=== PATIENT | male | born 1950 ===

== ENCOUNTER 2024-01-23 12:12 | Inpatient (IN) | payer MEDICARE, OTHER ==
[~2024-01-23 12:12] MED LIST: Iopamidol 300 61% 30 ML VIAL ONE; Iopamidol-370 76% 500 ML MDV (1 ML CHARGE) ONE
[2024-01-23 13:38] LABS: #Basophils 0.03 10x3/uL (0.0-0.2); #Eosinophils Less than 0.03 10x3/uL (0.0-0.7); %Basophils 0.4 % (0.0-1.0); %Monocytes 14.2 % (0.0-10.0); Hematocrit 36.4 % (42.0-52.0); Hemoglobin 12.5 g/dL (14.0-18.0); Mean Corpuscular HGB CONC 34.3 g/dL (32.0-36.0); Mean Corpuscular Hemoglobin 33.2 pg (27.0-31.0); Mean Corpuscular Volume 96.8 fL (78.0-98.0); Mean Platelet Volume 10.7 fL (7.4-10.4); Platelet Count 111 10x3/uL (130-400); RBC Distribution Width 11.9 % (11.5-14.5); Red Blood Cell (RBC) Count 3.76 mill/uL (4.70-6.10)
[2024-01-23 13:55] LABS: Troponin I Less than 0.010 ng/mL (< 0.028)
[2024-01-23] MEDS ORDERED: Morphine 2 MG/ML VIAL ONE ×2 (14:03→17:13)
[2024-01-23] MEDS ORDERED: Ondansetron PF 4 MG/2 ML Vial ONE (14:03)
[2024-01-23 14:06] LABS: ALT (SGPT) 15 U/L (8-55); AST (SGOT) 24 U/L (5-34); Albumin 3.8 g/dL (3.4-4.8); Alkaline Phosphatase 114 U/L (40-110); Anion Gap 14 mmol/L (10-20); BUN (Urea Nitrogen) 21 mg/dL (8.4-25.7); Bilirubin, Total 0.5 mg/dL (0.2-1.2); Calc. Creatinine Clearance 0 mL/min (70-130); Calcium 9.5 mg/dL (7.8-10.44); Carbon Dioxide 28 mmol/L (23-31); Chloride 102 mmol/L (98-107); Estimated GFR 57; Globulin 2.8 g/dL (2.4-3.5); Glucose 122 mg/dL (83-110); Lipase 21 U/L (8-78); Magnesium 2.3 mg/dL (1.6-2.6); Protein, Total 6.6 g/dL (5.8-8.1); Sodium 140 mmol/L (136-145)
[2024-01-23 14:15] LABS: Bacteria/HPF None Seen HPF (None Seen); Bilirubin Negative (Negative); Blood, Urine Negative (Negative); CAUTI Indications for Culture Alt mental st,lethar; Clarity Clear (Clear); Glucose, Urine (Dipstick) Normal (Negative); Ketone, Urine Negative (Negative); Leukocyte Negative Leu/uL (Negative); Nitrite Negative (Negative); Protein, Urine (Dipstick) Negative (Neg-Trace); RBC/HPF 0-3 HPF (0-3); Squamous Epithelial None Seen HPF (0-3); Urobilinogen Normal mg/dL (Less than 2); WBC/HPF 0-3 HPF (0-3); pH, Urine 7.5 (5.0-9.0)
[2024-01-23 14:16] LABS: Urine Culture Reflex No No
[2024-01-23] MEDS ORDERED: Doxycycline 100 MG VIAL ONE (17:13)
[2024-01-23] MEDS ORDERED: Sodium Chloride 0.9% 100 ML ONE (17:13)
[2024-01-23] MEDS ORDERED: Ondansetron ODT 4 MG TAB PO PRN (18:44)
[2024-01-23] MEDS ORDERED: Ondansetron PF 4 MG/2 ML Vial IVP PRN (18:44)
[2024-01-23] MEDS ORDERED: Acetaminophen 650 MG Suppository PR PRN (18:44)
[2024-01-23] MEDS ORDERED: Lorazepam 0.5 MG TAB PO PRN (19:06)
[2024-01-23 20:19] VITALS: BMI 20.5
[2024-01-23] MEDS: Multivit, Therapeutic 1 TAB PO SCH (20:38)
[2024-01-23] MEDS: Thiamine 100 MG TAB PO SCH (20:38)
[2024-01-23] MEDS: Folic Acid 1 MG TAB PO SCH (20:38)
[2024-01-23] MEDS: Sodium Chloride 0.9% 1,000 ML IV SCH (20:40)
[2024-01-23] MEDS: Senokot S 8.6-50 MG TAB PO SCH (20:40)
[2024-01-23] MEDS: Benzocaine/Menthol 1 LOZ LOZ PO PRN (20:40)
[2024-01-23] MEDS: Acetaminophen 325 MG TAB PO SCH (20:40)
[2024-01-23 22:56] LABS: Influenza A by NAA Not Detected (NotDetected); Influenza B by NAA Not Detected (NotDetected); RSV by NAA Not Detected (NotDetected); SARS-CoV-2 NAA Rapid Test DETECTED (NotDetected)
[2024-01-24] MEDS: GUAIFENESIN SF SOLN 200 MG/10 ML UDCUP PO PRN (03:43)
[2024-01-24 06:27] LABS: #Basophils Less than 0.03 10x3/uL (0.0-0.2); #Eosinophils Less than 0.03 10x3/uL (0.0-0.7); %Basophils 0.3 % (0.0-1.0); %Eosinophils 0.2 % (0.0-10.0); %Lymphocytes 10.2 % (21.0-51.0); %Monocytes 12.8 % (0.0-10.0); %Neutrophils 76.2 % (42.0-75.0); Hematocrit 35.6 % (42.0-52.0); Mean Corpuscular HGB CONC 33.7 g/dL (32.0-36.0); Mean Corpuscular Hemoglobin 33.1 pg (27.0-31.0); Mean Corpuscular Volume 98.3 fL (78.0-98.0); Mean Platelet Volume 11.4 fL (7.4-10.4); Platelet Count 98 10x3/uL (130-400); RBC Distribution Width 11.9 % (11.5-14.5); Red Blood Cell (RBC) Count 3.62 mill/uL (4.70-6.10)
[2024-01-24 07:22] LABS: Anion Gap 12 mmol/L (10-20); BUN (Urea Nitrogen) 18 mg/dL (8.4-25.7); Calc. Creatinine Clearance 56 mL/min (70-130); Calcium 8.5 mg/dL (7.8-10.44); Carbon Dioxide 25 mmol/L (23-31); Chloride 105 mmol/L (98-107); Estimated GFR 66; Glucose 91 mg/dL (83-110); Potassium 3.6 mmol/L (3.5-5.1); Sodium 138 mmol/L (136-145)
[2024-01-24] MEDS: FLU (Fluad Triv) TS24-25 (65UP)/MF59C/PF 45 MCG/0.5 ML Syringe IM ONE (09:42)
[2024-01-24] MEDS: Polyethylene Glycol 3350 17 GM Packet PO SCH (09:43)
[2024-01-24] MEDS: GoLYTELY 4,000 ml Bottle PO SCH (15:43)
[2024-01-25 06:06] LABS: #Basophils Less than 0.03 10x3/uL (0.0-0.2); %Basophils 0.3 % (0.0-1.0); %Eosinophils 0.6 % (0.0-10.0); %Lymphocytes 10.1 % (21.0-51.0); %Monocytes 12.2 % (0.0-10.0); %Neutrophils 76.5 % (42.0-75.0); Hematocrit 34.6 % (42.0-52.0); Hemoglobin 11.6 g/dL (14.0-18.0); Mean Corpuscular HGB CONC 33.5 g/dL (32.0-36.0); Mean Corpuscular Volume 98.3 fL (78.0-98.0); Mean Platelet Volume 11.8 fL (7.4-10.4); Platelet Count 92 10x3/uL (130-400); RBC Distribution Width 11.9 % (11.5-14.5); Red Blood Cell (RBC) Count 3.52 mill/uL (4.70-6.10)
[2024-01-25 06:11] LABS: ALT (SGPT) 11 U/L (8-55); AST (SGOT) 20 U/L (5-34); Albumin 2.9 g/dL (3.4-4.8); Alkaline Phosphatase 88 U/L (40-110); Anion Gap 12 mmol/L (10-20); BUN (Urea Nitrogen) 19 mg/dL (8.4-25.7); Bilirubin, Total 0.5 mg/dL (0.2-1.2); Calc. Creatinine Clearance 51 mL/min (70-130); Calcium 8.2 mg/dL (7.8-10.44); Carbon Dioxide 25 mmol/L (23-31); Chloride 105 mmol/L (98-107); Estimated GFR 59; Globulin 2.5 g/dL (2.4-3.5); Glucose 98 mg/dL (83-110); Potassium 3.2 mmol/L (3.5-5.1); Protein, Total 5.4 g/dL (5.8-8.1); Sodium 139 mmol/L (136-145)
[2024-01-25] MEDS ORDERED: Electrolyte Replacement Protocol 1 EACH FS SCH (09:45)
[2024-01-25] MEDS: Potassium Chloride 20 MEQ TAB PO SCH (11:45)
[2024-01-25] MEDS: GoLYTELY 4,000 ml Bottle PO SCH (12:26)
[2024-01-26 08:27] VITALS: BP 119/46; TEMP 98.2
== END 2024-01-26 12:01 | disposition home or self-care (01) | DRG 393 ==
LOC: ERS 12:12 → T4-A 16:49 → OBSVTOIN 01-25 09:44
PROVIDERS: ADMIT Internal Medicine; ATTEND Internal Medicine
DX: K62.89 Other specified diseases of anus and rectum (principal); U07.1 COVID-19; K59.00 Constipation, unspecified; I10 Essential (primary) hypertension; N18.30 Chronic kidney disease, stage 3 unspecified; I71.40 Abdominal aortic aneurysm, without rupture, unspecified; I12.9 Hypertensive chronic kidney disease with stage 1 through stage 4 chronic kidney disease, or unspecified chronic kidney disease; D69.6 Thrombocytopenia, unspecified; J06.9 Acute upper respiratory infection, unspecified; Z90.49 Acquired absence of other specified parts of digestive tract; Z79.899 Other long term (current) drug therapy; Z85.038 Personal history of other malignant neoplasm of large intestine
CPT/HCPCS: 0241U; 36415; 74177; 80048; 80053; 81001; 83605; 83690; 83735; 84484; 85025; 87040; 90653; 93005; 96374; 96375; 96376; J2272; J2405; J7030; Q9967